=== PATIENT | male | born 1990 | race Caucasian/White ===

== ENCOUNTER 2019-05-23 19:14 | Emergency (ER) | payer OTHER ==
[2019-05-23 19:24] VITALS: BP 145/80
[2019-05-23] MEDS ORDERED: BENZONATATE 100 MG CAPSULE PO STA (19:45)
[2019-05-23] MEDS ORDERED: ACETAMINOPHEN 325 MG TABLET PO STA (19:45)
[2019-05-23] MEDS ORDERED: IBUPROFEN 600 MG TABLET PO STA (19:45)
--- NOTE | 2019-05-23 19:47 | ED Physician Documentation ---
History of Present Illness - Stated complaint Stated Complaint: FLU LIKE SX - Chief complaint Chief Complaint: General - Additonal information Additional information: This is a 29-year-old male who presents with cough, nasal congestion, sore throat, and diarrhea as well as fever for 2 days. Patient began having rhinorrhea on Tuesday, this was followed by development of a cough, mild sore throat, which has improved today, and a fever to 101 at home. He has been taking DayQuil with some relief of his symptoms, his last dose was 4 to 5 hours ago. He states the cough is productive of some clear sputum. Has had copious nasal drainage. He denies shortness of breath, denies chest pain. He does not have any abdominal pain. He did have some loose stool earlier, this was nonbloody. No vomiting. He has had several sick contacts in the family. No travel recently. Review of Systems Constitutional: reports: Fever Nose: reports: Rhinorrhea / runny nose Cardiac: denies: Chest pain / pressure Respiratory: reports: Cough. denies: Dyspnea GI: reports: Diarrhea PD PAST MEDICAL HISTORY - Present Medications Home Medications: Ambulatory Orders Medication Instructions Recorded Confirmed Benzonatate [Tessalon Perle] 100 - 200 mg PO TID PRN #30 capsule 05/23/19 - Allergies Allergies/Adverse Reactions: Allergies Allergy/AdvReac Type Severity Reaction Status Date / Time codeine Allergy Unknown Verified 05/23/19 19:24 PD ED PE NORMAL - Vitals Vital signs reviewed: Yes - General General: Alert and oriented X 3 - HEENT HEENT: Atraumatic, Other (Clear rhinorrhea, posterior pharynx is erythematous, there is no exudate, tonsils are surgically absent.) - Neck Neck: Supple, no meningeal sign, Other (No significant cervical adenopathy.) - Cardiac Cardiac: No murmur, Other (Heart rate in the 90s on my exam, Regular rhythm) - Respiratory Respiratory: No respiratory distress, Clear bilaterally, Other (Intermittent cough) - Abdomen Abdomen: Soft, Non tender, Non distended - Derm Derm: Warm and dry - Extremities Extremities: No deformity - Neuro Neuro: Alert and oriented X 3 - Psych Psych: Normal mood, Normal affect Results - Vitals Vitals: Vital Signs - 24 hr 05/23/19 19:15 Temperature 37.2 C Heart Rate 104 H Respiratory 18 Rate Blood Pressure 145/80 H O2 Saturation 97 Oxygen O2 Source Room air PD MEDICAL DECISION MAKING - ED course ED course: Patient presents with 3 days of upper respiratory symptoms, he is well-appearing on examination he has clear lungs, no shortness of breath, no signs of pneumonia. He does have some clear rhinorrhea, but the duration of his illness and his well appearance makes sinusitis highly unlikely. Symptoms appear viral, I do not see signs of strep throat or other bacterial infection at this time. Flu is possible though he has had his flu shot and is otherwise healthy, and he is now out of the window where tamiflu is likely to be effective - after discussion with the patient we have elected not to perform a flu swab, and instead we will treat with supportive care with Tylenol, ibuprofen, Tessalon Perles and bbxj-mlq-wglfsoi decongestion as needed. I discussed return precautions with the patient and he was provided with a dose of Tylenol, ibuprofen, and Tessalon Perles and he was discharged home in the care of his . Departure - Departure Disposition: 01 Home, Self Care Clinical Impression: Upper respiratory infection Qualifiers: URI type: unspecified URI Qualified Code(s): J06.9 - Acute upper respiratory infection, unspecified Condition: Good Instructions: ED Upper Resp Infec No Abx Tx Prescriptions: Benzonatate [Tessalon Perle] 100 - 200 mg PO TID PRN #30 capsule PRN Reason: Cough Comments: You appear to have an upper respiratory infection, you may take Tylenol 650 mg and ibuprofen 600 mg every 6 hours for fever and discomfort. You may also try Benadryl 25 to 50 mg every 6 hours to help with your congestion. You may also use the Tessalon Perles for cough as directed. Get plenty of rest and drink fluids, practice good hand hygiene to avoid spreading this illness. If you having worsening symptoms such as difficulty breathing, symptoms that persist longer than 7 to 10 days, or any other concerning symptoms return to the emerg ency department. Discharge Date/Time: 05/23/19 20:08
== END 2019-05-23 20:08 | disposition home or self-care (01) ==
LOC: ED 19:14
DX: J06.9 Acute upper respiratory infection, unspecified (principal)
CPT/HCPCS: 99282; 99284; A9270

== ENCOUNTER 2021-06-29 07:31 | Emergency (ER) | payer OTHER ==
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
[2021-06-29] MEDS ORDERED: KETOROLAC 30 MG/ML VIAL IM STA (08:13)
[2021-06-29] MEDS ORDERED: ONDANSETRON ODT 4 MG TABLET TL STA (08:13)
[2021-06-29] MEDS ORDERED: oxyCODONE 5 MG TABLET PO STA (08:14)
--- NOTE | 2021-06-29 08:27 | XRAY Report ---
PROCEDURE: Shoulder 3 View RT INDICATIONS: Fall TECHNIQUE: 4 views of the shoulder were acquired. COMPARISON: None. FINDINGS: Bones: Comminuted, moderately displaced fracture of the right mid clavicle. There is approximately 2. 5 cm of inferior displacement of the distal fracture fragment. The acromioclavicular and coracoclavic ular intervals appear to be intact. Glenohumeral joint is intact. The visible rib arcs are intact. No suspicious bony lesions. Visualized ribs appear intact. Soft tissues: No suspicious soft tissue calcifications. Underlying right lung is fully inflated. IMPRESSION: 1. Comminuted, moderately displaced midshaft right clavicle fracture. Reviewed by: Lillie Gomez MD on 06/29/2021 8:25 AM PDT Approved by: Lillie Gomez MD on 06/29/2021 8:25 AM PDT Station ID: [id number]
[2021-06-29 08:46] VITALS: BP 132/100
== END 2021-06-29 09:02 | disposition home or self-care (01) ==
LOC: ED 07:31
DX: S42.021A Displaced fracture of shaft of right clavicle, initial encounter for closed fracture (principal); S90.512A Abrasion, left ankle, initial encounter; S80.812A Abrasion, left lower leg, initial encounter; V19.9XXA Pedal cyclist (driver) (passenger) injured in unspecified traffic accident, initial encounter; Y93.55 Activity, bike riding; Y92.410 Unspecified street and highway as the place of occurrence of the external cause
CPT/HCPCS: 73030; 96372; 99282; 99283; A9270; Q0162

== ENCOUNTER 2022-08-11 08:00 | Emergency (ER) | payer OTHER ==
--- NOTE | 2022-08-11 08:27 | ED Physician Documentation ---
PD HPI ABD PAIN - Stated complaint Stated Complaint: ABD PX - Chief complaint Chief Complaint: Abd Pain - History obtained from History obtained from: Patient - History of Present Illness Timing - onset: How many days ago (5) Timing - duration: Days (5) Timing - details: Gradual onset, Still present Quality: Cramping, Aching, Pain Location: Epigastric, LUQ Radiation: No: Chest, Lower back, Left flank Improved by: Laying still. No: Vomiting, BM Worsened by: Moving, Palpation. No: Eating Associated symptoms: Fever (intially with URI symptoms of congestion, fevers, aches, along with his , for 2 days. That part improved but then developed upper/left abd pain that has continued for 4 days now.), Nausea, Vomiting (only once.), Diarrhea (few episodes of watery stool without blood/mucous.). No: Constipation Similar symptoms before: Has not had sx before Recently seen: Not recently seen Review of Systems Constitutional: reports: Fever (for 1-2 days, onset 5 days ago and is resolved.), Chills Nose: denies: Rhinorrhea / runny nose, Congestion Throat: denies: Sore throat Cardiac: denies: Chest pain / pressure Respiratory: denies: Cough GI: reports: Abdominal Pain, Nausea, Diarrhea. denies: Vomiting, Bloody / black stool : denies: Dysuria, Frequency PD PAST MEDICAL HISTORY - Past Medical History Past Medical History: No Cardiovascular: None Respiratory: None Neuro: None GI: None - Past Surgical History Past Surgical History: No - Present Medications Home Medications: Ambulatory Orders Medication Instructions Recorded Confirmed Amox/Clav 875/125 [Augmentin] 1 each PO BID #10 tablet 08/11/22 HYDROcod/ACETAM 5/325 [[place] 5/325] 1 ea PO Q6H PRN #12 tablet 08/11/22 Naproxen 250 mg PO BID 7 Days #14 tablet 08/11/22 Ondansetron Odt [Zofran] 4 mg TL Q6H PRN #10 tablet 08/11/22 dexAMETHasone [Decadron] 4 mg PO DAILY #5 tablet 08/11/22 - Allergies Allergies/Adverse Reactions: Allergies Allergy/AdvReac Type Severity Reaction Status Date / Time codeine Allergy Unknown Verified 08/11/22 08:09 - Social History Does the pt smoke?: No Smoking Status: Never smoker Does the pt drink ETOH?: Yes Does the pt have substance abuse?: No - Immunizations Immunizations are current?: Yes - POLST Patient has POLST: No PD ED PE NORMAL - Vitals Vital signs reviewed: Yes - General General: Alert and oriented X 3, Well developed/nourished, Other (appears uncomfortable and holding LUQ. ) - Neck Neck: Supple, no meningeal sign, No adenopathy - Cardiac Cardiac: RRR, No murmur - Respiratory Respiratory: No respiratory distress, Clear bilaterally - Abdomen Abdomen: Normal bowel sounds, Soft, Non distended, No organomegaly, Other (tender LUQ to palpation and percussion with mild guarding. Mild local rebound. ) - Male Male : Other (no inguinal hernias. ) - Rectal Rectal: Deferred - Back Back: No CVA TTP - Derm Derm: Normal color, Warm and dry - Extremities Extremities: No edema, No calf tenderness / cord - Neuro Neuro: Alert and oriented X 3, No motor deficit, Normal speech Results - Vitals Vitals: Vital Signs - 24 hr 08/11/22 08/11/22 08/11/22 08:04 10:09 12:00 Temperature 36.5 C Heart Rate 101 H 71 83 Respiratory 16 15 16 Rate Blood Pressure 140/85 H 130/77 136/84 H O2 Saturation 96 99 100 Oxygen O2 Source Room air - Labs Labs: Laboratory Tests 08/11/22 08/11/22 08/11/22 08:55 08:55 09:00 WBC 6.6 RBC 5.25 Hgb 15.4 Hct 44.4 MCV 84.6 MCH 29.3 MCHC 34.7 RDW 12.4 Plt Count 217 MPV 10.1 Neut # (Auto) 4.1 Lymph # (Auto) 1.3 L [place] # (Auto) 1.0 Eos # (Auto) 0.1 Baso # (Auto) 0.0 Absolute Nucleated RBC 0.00 Nucleated RBC % 0.0 Sodium Potassium Chloride Carbon Dioxide Anion Gap BUN Creatinine Estimated GFR (MDRD) Glucose Calcium Total Bilirubin AST ALT Alkaline Phosphatase Total Protein Albumin Globulin Albumin/Globulin Ratio Lipase Urine Color Urine Clarity Urine pH Ur Specific [place] Urine Protein Urine Glucose (UA) Urine Ketones Urine Occult Blood Urine Nitrite Urine Bilirubin Urine Urobilinogen Ur Leukocyte Esterase Ur Microscopic Review Urine Culture Comments Stool Leukocytes, Qual POSITIVE Stl C. diff Tox B Gene NEGATIVE 08/11/22 08/11/22 09:00 12:00 WBC RBC Hgb Hct MCV MCH MCHC RDW Plt Count MPV Neut # (Auto) Lymph # (Auto) [place] # (Auto) Eos # (Auto) Baso # (Auto) Absolute Nucleated RBC Nucleated RBC % Sodium 140 Potassium 3.6 Chloride 106 Carbon Dioxide 26 Anion Gap 8.0 BUN 17 Creatinine 0.9 Estimated GFR (MDRD) 97 Glucose 110 H Calcium 9.0 Total Bilirubin 0.7 AST 60 H ALT 33 Alkaline Phosphatase 82 Total Protein 7.8 Albumin 4.1 Globulin 3.7 Albumin/Globulin Ratio 1.1 Lipase 38 Urine Color YELLOW Urine Clarity CLEAR Urine pH 6.5 Ur Specific Wisner 1.010 Urine Protein NEGATIVE Urine Glucose (UA) NEGATIVE Urine Ketones NEGATIVE Urine Occult Blood NEGATIVE Urine Nitrite NEGATIVE Urine Bilirubin NEGATIVE Urine Urobilinogen 0.2 (NORMAL) Ur Leukocyte Esterase NEGATIVE Ur Microscopic Review NOT INDICATED Urine Culture Comments NOT INDICATED Stool Leukocytes, Qual Stl C. diff Tox B Gene - Rads (name of study) abd CT Relevant Findings:: Prelim report reviewed (appendix enlarged at 9 mm but no inflammatory changes. small bowel swelling c/w ileus versus enteritis. ), EMP independent interpretation of test, See rad report PD Medical Decision Making - ED course Complexity details: reviewed results (upper small bowel enteritis. Pt is not tender RLQ so I don't feel the appendix is the issue. ), considered differential (patient with viral type symptoms but then followed with continued focal LUQ abd pain and nausea. No history of Crohns/irritable bowel, etc. Concern for local infection. ), d/w patient ED course: will treat as infectious enteritis. Pt will subsequently likely want to have colonoscopy after better to eval for immune enteritis such as crohns, if this was triggered by viral illness. He is feeling improved with fluids/Toradol. He is comfortable discharging home. Departure - Departure Disposition: 01 Home, Self Care Clinical Impression: Enteritis, Acute upper abdominal pain Condition: Stable Record reviewed to determine appropriate education?: Yes Follow-Up: JIMMY MCCRARY DO [Primary Care Provider] - Prescriptions: Amox/Clav 875/125 [Augmentin] 1 each PO BID #10 tablet dexAMETHasone [Decadron] 4 mg PO DAILY #5 tablet Naproxen 250 mg PO BID 7 Days #14 tablet HYDROcod/ACETAM 5/325 [[place] 5/325] 1 ea PO Q6H PRN #12 tablet PRN Reason: Pain Ondansetron Odt [Zofran] 4 mg TL Q6H PRN #10 tablet PRN Reason: Nausea / Vomiting Comments: Your CT scan shows inflammation of the small bowel with hindrance of flow through causing some partial back pressuring. This is the symptoms you are having. It does not appear to be constipation or excess stool. This is likely part of the viral illness you just had though it could be there was some triggering of some immune inflammatory or even bacterial infectious component. As such we will treat it with anti-inflammatories of Decadron and naproxen taken with food. Soft food or liquid diet for the next several days to have less bulk within the intestine. Add Tylenol every 4-6 hours if needed for pain or hydrocodone/acetaminophen if needed for worse pain. I would add Augmentin antibiotic for concern of bacterial secondary infection with the enteritis. Follow-up with your primary care if not improving well over the next 2 to 3 day s. Return if worsened to the ER. Subsequent follow-up once you are well: Consideration would be for a colonoscopy follow-up in the near future once you are well to evaluate for any potential underlying immune inflammatory conditions such as Crohn's disease that might of been triggered by the viral illness. This would not be an urgent study per se. I sent your prescriptions to [facility] in [place]. Off work today in the next couple of days. I am prescribing a short course of narcotic pain medication for you. These are potentially dangerous and addictive medications that should be used carefully. These medications may constipate you. Take an ncta-jdf-nlvwqbc stool softener such as docusate twice daily with plenty of water while taking these medications. If you go 24 hours without a bowel movement, take ydmj-sbb-oqcgdne MiraLAX, per package instructions. Do not drink or drive while taking these medications. If you received narcotic or sedating medications while in the emergency department do not drive for 24 hours. Store this medication in a safe, secure place and out of reach of children. It is a violation of federal law to give or sell this medication to another person or to use in a manner other than prescribed. The ED will not refill narcotic prescriptions, including prescriptions lost or stolen. You can dispose of unwanted medications at the [facility] office or at several pharmacies such as [facility]. Forms: Activity restrictions Discharge Date/Time: 08/11/22 12:10
[2022-08-11] MEDS ORDERED: SODIUM CHLORIDE 0.9% 1,000 ML IV STA (08:49)
[2022-08-11] MEDS ORDERED: KETOROLAC 15 MG/ML VIAL IVP STA (08:49)
[2022-08-11] MEDS ORDERED: iohexoL-300 100 ML VIAL ONE (09:05)
[2022-08-11 09:08] LABS: BASOPHILS % (AUTO) 0.3 %; EOSINOPHILS # (AUTO) 0.1 10^3/uL (0.0-0.7); EOSINOPHILS % (AUTO) 2.1 %; HCT - HEMATOCRIT 44.4 % (42.0-52.0); HGB - HEMOGLOBIN 15.4 g/dL (14.0-18.0); LYMPHOCYTES # (AUTO) 1.3 10^3/uL (1.5-3.5); LYMPHOCYTES % (AUTO) 19.6 %; MEAN CORPUSCULAR HEMOGLOBIN 29.3 pg (27.0-31.0); MEAN CORPUSCULAR HGB CONC 34.7 g/dL (32.0-36.0); MEAN CORPUSCULAR VOLUME 84.6 fL (80.0-94.0); MEAN PLATELET VOLUME 10.1 fL (7.4-11.4); MONOCYTES % (AUTO) 14.9 %; NEUTROPHILS # (AUTO) 4.1 10^3/uL (1.5-6.6); NEUTROPHILS % (AUTO) 62.9 %; PLT - PLATELET COUNT 217 10^3/uL (130-450); RED BLOOD COUNT 5.25 10^6/uL (4.70-6.10); RED CELL DISTRIBUTION WIDTH 12.4 % (12.0-15.0); WHITE BLOOD COUNT 6.6 x10^3/uL (4.8-10.8)
[2022-08-11 09:20] LABS: ALBUMIN 4.1 g/dL (3.2-5.5); ALBUMIN/GLOBULIN RATIO 1.1 (1.0-2.2); BILIRUBIN,TOTAL 0.7 mg/dL (0.2-1.0); CREATININE 0.9 mg/dL (0.6-1.2); POTASSIUM 3.6 mmol/L (3.5-5.0); TOTAL PROTEIN 7.8 g/dL (6.7-8.2)
[2022-08-11] MEDS ORDERED: iohexoL-300 100 ML VIAL IVP ONE (11:06)
--- NOTE | 2022-08-11 11:06 | CT Report ---
PROCEDURE: CT abdomen pelvis with contrast INDICATIONS: Abdominal pain, acute, nonlocalized CONTRAST: 100ml Omnipaque 300 TECHNIQUE: After the administration of contrast, 5 mm thick sections acquired from the diaphragms to the symphys is. 5 mm thick coronal and sagittal reformats were acquired. For radiation dose reduction, the foll owing was used: automated exposure control, adjustment of mA and/or kV according to patient size. COMPARISON: None FINDINGS: Image quality: Excellent. Lung bases and heart: Unremarkable. Liver: No solid mass. Subcentimeter hepatic hypodensity, likely cyst Gallbladder and biliary tree: Spleen: No splenomegaly. Pancreas: No pancreatic ductal dilation. Adrenals: No adrenal nodule. Kidneys and ureters: No hydronephrosis. No renal cystic lesion which requires follow up. No solid mas s. Bowel and peritoneum: Proximal small bowel is fluid distended measuring up to 3 cm, and the distal sm all bowel is decompressed. Transition noted in the left flank. Several diverticula arise from the sig moid colon without evidence of diverticulitis. Additionally, the appendix is distended up to 9 mm wit hout periappendiceal inflammatory change. Lymph nodes: No central or retroperitoneal adenopathy. Vessels: No infrarenal aortic aneurysm. PELVIS Reproductive organs: Unremarkable. Bladder: No abnormal wall thickening, accounting for underdistension. Pelvic lymph nodes: No pelvic adenopathy by size criteria. Bones: No aggressive osseous abnormality. Other: No significant ventral or inguinal hernia. IMPRESSION: Proximal distended small bowel. Differential includes small bowel obstruction and ileus or enteritis. Consider short-term interval follow-up. Distended but not inflamed appendix measures up to 9 mm in diameter. Sigmoid diverticulosis without evidence of diverticulitis Reviewed by: Gerald Lopez MD on 08/11/2022 10:05 AM TAM Approved by: Gerald Lopez MD on 08/11/2022 10:05 AM TAM Station ID: [id number]
[2022-08-11] MEDS ORDERED: DEXAMETHASONE 10 MG/ML VIAL IVP STA (11:29)
[2022-08-11] MEDS ORDERED: ACETAMINOPHEN 325 MG TABLET PO STA (11:53)
[2022-08-11] MEDS ORDERED: AMOX/CLAV 875 MG/125 MG TABLET PO STA (11:53)
[2022-08-11 12:05] VITALS: BP 136/84
[2022-08-11 12:12] LABS: BILIRUBIN,URINE NEGATIVE (NEGATIVE); GLUCOSE, URINE (UA) NEGATIVE (NEGATIVE); KETONES,URINE (UA) NEGATIVE (NEGATIVE); LEUKOCYTE ESTERASE, URINE NEGATIVE (NEGATIVE); NITRITE,URINE NEGATIVE (NEGATIVE); OCCULT BLOOD,URINE NEGATIVE (NEGATIVE); PH,URINE 6.5 PH (5.0-7.5); PROTEIN,URINE NEGATIVE (NEGATIVE); UROBILINOGEN,URINE 0.2 (NORMAL) E.U./dL (NORMAL)
[2022-08-11 12:23] LABS: CLARITY,URINE CLEAR (CLEAR)
== END 2022-08-11 12:10 | disposition home or self-care (01) ==
LOC: ED 08:00
DX: K52.9 Noninfective gastroenteritis and colitis, unspecified (principal)
CPT/HCPCS: 36415; 74177; 80053; 81003; 83630; 83690; 83993; 85025; 87493; 96374; 96375; 99284; A9270; Q9967; 81001; 87086